=== PATIENT | male | born 1955 | race Caucasian/White ===

== ENCOUNTER 2017-03-04 08:30 | Day surgery (SDC) | payer BC ==
[~2017-03-04 08:30] MED LIST: ANCEF VIAL 1 GM ONE; LR 1000 ML IV 1,000 ML IV ONE; NS 100 ML IV 100 ML IV ONE; NS 1000 ML 1,000 ML ONE; NS 50 ML IV + SPIKE MINIBAG* 50 ML IV ONE
[2017-03-04] MEDS ORDERED: MARCAINE 0.25% WITH EPI IJ ONE (09:07)
[2017-03-04] MEDS ORDERED: XYLOCAINE 1 % (PLAIN) ONE (09:07)
[2017-03-04] MEDS ORDERED: NS IRRIGATION 1000 ML 1,000 ML IR ONE (11:23)
[2017-03-04] MEDS ORDERED: ZOFRAN INJ 4 MG VIAL IVP PRN (11:49)
[2017-03-04] MEDS ORDERED: PERCOCET TAB 5/325 MG PO PRN (11:53)
[2017-03-04 13:10] VITALS: BP 120/62
[2017-03-04] MEDS ORDERED: PERCOCET TAB 5/325 MG ONE (14:05)
[2017-03-04] MEDS ORDERED: DIPRIVAN VIAL ONE (14:47)
[2017-03-04] MEDS ORDERED: VERSED ONE (14:47)
== END 2017-03-04 14:20 | disposition home or self-care (01) ==
LOC: SURG1 08:30
PROVIDERS: ATTEND Student in an Organized Health Care Education/Training Program
PROC: 0WUF0JZ Supplement Abdominal Wall with Synthetic Substitute, Open Approach (ICD-10-PCS; principal; 2017-03-04 09:30)
DX: K42.0 Umbilical hernia with obstruction, without gangrene (principal)
CPT/HCPCS: A4222; S0020; J0690; J2001; J2250; J3490; J7120